=== PATIENT | female | born 1995 | race African-American/Black ===

== ENCOUNTER 2023-09-19 13:43 | Emergency (ER) | payer MEDICAID ==
[~2023-09-19] VITALS: Ht 165.1 cm; Wt 75.0 kg
[2023-09-19 13:47] VITALS: O2SAT 100
[2023-09-19] MEDS: ACETAMINOPHEN 500MG TABLET PO ONE (14:26)
[2023-09-19 17:57] VITALS: BP 128/68; PULSE 99; RESP 20; TEMP 97.6
== END 2023-09-19 17:57 | disposition home or self-care (01) ==
LOC: ER 13:43
DX: M25.532 Pain in left wrist (principal); F32.9 Major depressive disorder, single episode, unspecified; I10 Essential (primary) hypertension
CPT/HCPCS: 73100; 73120; 99284